=== PATIENT | female | born 1985 | race Caucasian/White ===

== ENCOUNTER 2017-05-04 17:10 | Emergency (ER) | payer SELFPAY ==
[2017-05-04 17:14] VITALS: BP 184/88; BMI 43.2
--- NOTE | 2017-05-04 19:52 | RAD ---
EXAM: Left ankle x-ray INDICATION: Pain COMPARISION: No priors for comparison TECHNIQUE: AP, lateral, and oblique, three views FINDINGS: No acute fracture or dislocation. There is no evidence of an intraosseous lesion. The joint spaces ar e preserved. No joint effusion is identified. The surrounding soft tissues are edematous around the a nkle. There is no evidence of a radiopaque foreign body. IMPRESSION: There is soft tissue swelling around the ankle. Reported By:
--- NOTE | 2017-05-04 20:13 | DR.GENAD ---
HPI - PCP Primary Care Physician: EAGLE BERG Comment HPI Comment: Ankle pain - Complaint/Symptoms Chief Complaint Doctors Comments: She complains of a left ankle pain. Onset was since last night. 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 It was described as an inversion injury. She denies palpitation or dizziness. Pain worsens with weight bearing. Chief Complaint:: FALL YESTERDAY PAIN TO LEFT ANKLE - Source History Provided: Patient - Mode of Arrival Mode of Arrival: Ambulatory - Timing Onset of Chief Complaint: 05/03/17 Came on: Suddenly - Duration Duration: Since Onset How lon Duration: Days - Location Location: Lt. ankle - Severity Severity: Moderate - Modifying Factors Worsens:: weight bearing Improves:: nothing - Associated Signs and Symptoms Associated Signs and Symptoms: swelling PMH - PMH Past Medical History: Yes Past Medical History: Hypertension Past Surgical History: No - Family History History of Family Medical Conditions: No - Social History Does patient currently use any type of tobacco product: No Have you used tobacco products in the last 12 months: No Type of Tobacco Use: Cigarettes How many years tobacco product used: 16 Does any household member use tobacco: No Alcohol Use: None Do you use any recreational Drugs:: No Lives With: Family Lives Where: Home - infectious screening In the last 2 months have you had wt loss of >10#?: NO Have you had fever, night sweats or hemotysis?: No Have you traveled outside the country in the last 6 months?: No Isolation: Standard ROS - Review of Systems Constitutional: No Symptoms Reported Eyes: No Symptoms Reported ENTM: No Symptoms Reported Respiratoy: No Symptoms Reported Cardiovascular: No Symptoms Reported Gastrointestinal/Abdominal: No Symptoms Reported Genitourinary: No Symptoms Reported Neurological: No Symptoms Reported Musculoskeletal: No Symptoms Reported, Joint Pain (Lt. ankle), Joint Swelling ( Lt. ankle) Integumentary: No Symptoms Reported Hematologic/Lymphatic: No Symptoms Reported Endocrine: No Symptoms Reported Psychiatric: No Symptoms Reported All Other Systems: Reviewed and Negative PE - Vital Signs Vitals: Temperature 98.5 F Pulse Rate 79 Respiratory Rate 18 Blood Pressure 184/88 O2 Sat by Pulse Oximetry 99 - General Limitations: No Limitations General Appearance: Alert, In No Apparent Distress - Head Head Exam: Normal Inspection - Eyes Eye exam: Normal Appearance - ENT ENT Exam: Normal Exam External Ear Exam: Normal External Inspection TM/Canal Exam: Bilateral Normal Nose Exam: Normal Nose Exam Mouth Exam: Normal Inspection Throat Exam: Normal Inspection - Neck Neck Exam: Normal Inspection - Chest Chest Inspection: Normal Inspection - Respiratory Respiratory Exam: Normal Lung Sounds Bilat Respiratory Exam: Bilateral Clear to Auscultation - Cardiovascular Cardiovascular Exam: Regular Rate, Normal Rhythm - Abdominal Exam Abdominal Exam: Normal Inspection, Normal Bowel Sounds, Soft - Extremities Extremities Exam: Normal Inspection, Tenderness (mild tenderness and swelling over left lateral malleolus areas. no ecchymosis noted. ) - Back Back Exam: Normal Inspection - Neurologic Neurological Exam: Alert, Oriented X3 - Psychiatric Psychiatric Exam: Normal Affect, Normal Mood - Skin Skin Exam: Warm, Dry, Intact, Normal Color ROR - XRAY XRAY Interpreted by: Radiologist XRAY Findings: there is soft tissue swelling arond the left ankle - Diagnosis Discharge Problem: Sprain and strain of deltoid (ligament) of ankle - Discharge Plan Disposition: 01 HOME, SELF-CARE Condition: Stable - Follow ups/Referrals Follow ups/Referrals: [facility],None [Primary Care Provider] - 3 days - Instructions
[2017-05-04] MEDS ORDERED: NORCO 5/325 MG TAB PO ONE (20:19)
[2017-05-04] MEDS ORDERED: NORCO 5/325 MG TAB ONE (20:22)
== END 2017-05-04 20:38 | disposition home or self-care (01) ==
LOC: ER 17:20
DX: S93.422A Sprain of deltoid ligament of left ankle, initial encounter (principal); W19.XXXA Unspecified fall, initial encounter; Y92.9 Unspecified place or not applicable
CPT/HCPCS: 29540; 73610; 99282; 99283